=== PATIENT | female | born 1995 | race American Indian/Alaskan Native ===

== ENCOUNTER 2017-07-23 19:18 | Emergency (ER) | payer MEDICAID | END 2017-07-23 19:25 | disposition left against medical advice (07) | LOC: ED 19:18 | DX: R10.9 Unspecified abdominal pain (principal); Z53.21 Procedure and treatment not carried out due to patient leaving prior to being seen by health care provider ==

== ENCOUNTER 2017-11-25 17:55 | Emergency (ER) | payer SELFPAY | END 2017-11-25 17:56 | disposition left against medical advice (07) | LOC: ED 17:55 | DX: R10.9 Unspecified abdominal pain (principal); Z53.21 Procedure and treatment not carried out due to patient leaving prior to being seen by health care provider ==

== ENCOUNTER 2019-01-23 22:59 | Emergency (ER) | payer SELFPAY ==
[2019-01-24 00:28] VITALS: BP 156/76
[2019-01-24] MEDS ORDERED: NACL 0.9% 1000 ML 1,000 ML IV ONE (02:37)
[2019-01-24 03:10] LABS: HCG Qualitative,Urine Negative (Negative)
[2019-01-24 03:27] LABS: Bilirubin,Urine NEG (Negative); Blood,Urine SM (Negative); Color,Urine Straw (Yellow); Mucus,Urine FEW /HPF; Protein,Urine <15 mg/dL mg/dL (Negative); Urobilinogen,Urine < 2.0 mg/dL (<2.0)
== END 2019-01-24 07:26 | disposition left against medical advice (07) ==
LOC: ED 22:59
DX: R10.9 Unspecified abdominal pain (principal); Z53.21 Procedure and treatment not carried out due to patient leaving prior to being seen by health care provider
CPT/HCPCS: 81001; 81025

== ENCOUNTER 2020-04-03 06:52 | Inpatient (IN) | payer OTHER ==
[2020-04-03] MEDS ORDERED: AMPICILLIN/NS 2 GM/100 ML 2 GM/100 ML BAG IV ONE (07:56)
[2020-04-03] MEDS ORDERED: BUTORPHANOL 2 MG/1 ML INJ IV PRN ×2 (09:00)
[2020-04-03] MEDS ORDERED: MINERAL OIL 30 ML ORAL LIQD PO PRN (09:00)
[2020-04-03] MEDS ORDERED: LIDOCAINE (2%) 20 MG/1 ML VIAL 20 ML MDV INFILTRATI SCH (09:00)
[2020-04-03] MEDS ORDERED: ONDANSETRON 4 MG/2 ML INJ IV PRN ×2 (09:00→12:42)
[2020-04-03] MEDS ORDERED: PROMETHAZINE 25 MG TAB PO PRN ×2 (09:00→12:42)
[2020-04-03] MEDS ORDERED: OXYTOCIN 20 UNIT/1000ML DRIP 20 UNITS/1,000 ML BAG IV SCH (09:00)
[2020-04-03] MEDS ORDERED: ePHEDrine SULFATE 50 MG/1 ML INJ IV PRN (09:00)
[2020-04-03] MEDS ORDERED: fentaNYL 100 MCG/2 ML INJ IV PRN (09:00)
[2020-04-03] MEDS ORDERED: TERBUTALINE 1 MG/1 ML INJ SUB-Q PRN (09:00)
[2020-04-03] MEDS ORDERED: TERBUTALINE 1 MG/1 ML INJ IVP PRN (09:00)
[2020-04-03] MEDS ORDERED: NALOXONE 0.4 MG/1 ML INJ IV PRN (09:00)
[2020-04-03] MEDS ORDERED: OXYTOCIN DRIP 30 UNITS/500 ML BAG IV SCH ×2 (09:00)
--- NOTE | 2020-04-03 10:01 | History and Physical Report ---
History of Present Illness Date of examination: 04/03/20 Date of admission: 04/03/20 08:53 Chief complaint: Contractions History of present illness: Pt is a at 38.2 weeks EGA who presents with regular uterine contractions since 0300 today. She reports positive movement and denies LOF or vaginal bleeding. She has received care with [facility]. Her has been complicated by Chlamydia, cured. She is GBS positive. She has a history of LTCS x1 and x1. 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 Family/Genetic History: none Social history: no significant social history - Obstetrical History Expected Date of Delivery: 04/15/20 Actual Gestation: 38 Week(s) 2 Day(s) : 3 Para: 2 Number of Living Children: 2 Medications and Allergies Allergies Allergy/AdvReac Type Severity Reaction Status Date / Time No Known Allergies Allergy Verified 09/09/13 19:18 Home Medications Medication Instructions Recorded Confirmed Last Taken Type Pnv with Ca,No.72/Iron/FA 1 caplet AU AC 09/09/13 04/03/20 09/09/13 History [ Plus Tablet] Ferrous Sulfate [Feosol 325 MG tab] 325 mg PO QDAY #30 tablet 09/12/13 04/03/20 Unknown Rx Hydrocodone Bit/Acetaminophen 1 each PO Q4-6H PRN #30 tablet 09/12/13 04/03/20 Unknown Rx [Lortab 5-500 Tablet] Ibuprofen [Motrin 600 MG tab] 600 mg PO Q6H PRN #30 tablet 09/12/13 04/03/20 Unknown Rx Nitrofurantoin Callahan/M-Cryst 100 mg PO Q12HR #10 capsule 09/12/13 04/03/20 Unknown Rx [Macrobid] Vit-Fe Fumar-FA [ 1 each PO QDAY #30 tablet 09/12/13 04/03/20 04/02/20 Rx Vitamin] Ibuprofen [Motrin 600 MG tab] 600 mg PO Q6H PRN #30 tablet 04/14/16 04/03/20 Unknown Rx Active Meds: Active Medications Butorphanol Tartrate (Stadol) 1 mg IV Q2H PRN PRN Reason: Pain, Moderate(4-6) LABOR PAIN Butorphanol Tartrate (Stadol) 2 mg IV Q2H PRN PRN Reason: Pain , Severe (7-10) Ephedrine Sulfate (Ephedrine Sulfate) 10 mg IV Q2M PRN PRN Reason: Hypotension Fentanyl (Sublimaze) 100 mcg IV Q2H PRN PRN Reason: Pain,Severe (7-10) LABOR PAIN Oxytocin/Sodium Chloride (Pitocin/Ns 20 Unit/1000ml Drip) 20 units in 1,000 mls @ 125 mls/hr IV DIRECT ROLANDO Oxytocin/Sodium Chloride (Pitocin/Ns 30 Unit/500ml) 30 units in 500 mls @ 1 mls/hr IV TITR ROLANDO; Protocol Oxytocin/Sodium Chloride (Pitocin/Ns 30 Unit/500ml) 30 units in 500 mls @ 2 mls/hr IV TITR ROLANDO; Protocol Lactated Ringer's (Lactated Ringers) 1,000 mls @ 125 mls/hr IV DIRECT ROLANDO Ampicillin Sodium (Ampicillin/Ns 1 Gm/50 Ml) 1 gm in 50 mls @ 100 mls/hr IV Q4H ROLANDO; Protocol Lidocaine (Xylocaine 2%) 20 ml INFILTRATI ONCE ROLANDO Stop: 04/04/20 08:59 Mineral Oil (Mineral Oil) 30 ml PO QHS PRN PRN Reason: Constipation Naloxone HCl (Naloxone) 0.1 mg IV Q2MIN PRN PRN Reason: Res Rate </= 8 or 02 SAT < 92% Ondansetron HCl (Zofran) 4 mg IV Q8H PRN PRN Reason: Nausea And Vomiting Promethazine HCl (Phenergan) 25 mg PO Q6H PRN PRN Reason: Nausea And Vomiting Terbutaline Sulfate (Brethine) 0.25 mg SUB-Q ONCE PRN PRN Reason: Hyperstimulation/Hypertonicity Terbutaline Sulfate (Brethine) 0.25 mg IVP ONCE PRN PRN Reason: Hyperstimulation/Hypertonicity Review of Systems All systems: negative Genitourinary: contractions, no vaginal bleeding, no leakage of fluid - Vital Signs Vital signs: Vital Signs Temp Resp 97.9 F 18 04/03/20 07:18 04/03/20 07:18 Temp Pulse Resp BP Pulse Ox 97.9 F 89 18 117/74 98 04/03/20 07:18 04/03/20 08:56 04/03/20 07:18 04/03/20 08:47 04/03/20 08:56 - Physical Exam Genitourinary (Female): Positive: normal external genitalia Uterus: Positive: enlarged (gravid) Extremities: Positive: normal - Obstetrical FHR: category 1 Uterine Contraction Monitor Mode: External Cervical Dilatation: 6 Cervical Effacement Percentage: 90 station: -2 Uterine Contraction Frequency (min): 3 Uterine Contraction Pattern: Regular Results Result Diagrams: 04/03/20 10:17 All other labs normal. Assessment and Plan A: 25 yo at 38.4 weeks EGA Active labor Phobia of needles GBS positive P: Admit for labor Consult anesthesia for sedation prior to IV placement Consider delivery in OR if unable to place IV Anticipate
[2020-04-03] MEDS: LACTATED RINGERS 1,000 ML IV SCH ×2 (10:17→11:13)
[2020-04-03 10:48] LABS: Hematocrit 39.3 % (30.3-42.9); Hemoglobin 13.1 gm/dl (10.1-14.3); Mean Corpuscular HGB Conc 33 % (30-34); Mean Corpuscular Volume 96 fl (79-97); Platelet Count 196 K/mm3 (140-440); Red Blood Count 4.09 M/mm3 (3.65-5.03); Red Cell Distribution Width 14.1 % (13.2-15.2)
[2020-04-03] MEDS ORDERED: DEXMEDETOMIDINE 200 MCG/2 ML VIAL IV ONE (11:29)
[2020-04-03] MEDS ORDERED: METHYLERGONOVINE MALEATE 0.2 MG/ML VIAL IM ONE (12:18)
[2020-04-03] MEDS ORDERED: AMPICILLIN/NS 1 GM/50 ML 1 GM/50 ML BAG IV SCH (12:30)
--- NOTE | 2020-04-03 12:33 | Procedure Note ---
OB Delivery Note - Delivery Date of Delivery: 04/03/20 Surgeon: PAN PRADO ([facility]) Estimated blood loss: other (400cc) - Vaginal Delivery presentation: vertex Delivery position: OA Intrapartum events: none, PROM->1hr before delivery Delivery induction: none Delivery monitor: external FHT, external uterine Route of delivery: Delivery placenta: spontaneous Delivery cord: 3 umbilical vessels Episiotomy: none Delivery laceration: none Anesthesia: none Delivery comments: Spontaneous maternal effort progressed spontaneous of vigorous . Head delivered OA, shoulders followed with gentle traction. Apgars 9/9. Placenta delivered with gentle traction spontaneously and intact. Succenturiate lobe noted. Brisk bleeding resolved with expression clots and IV Pitocin. No lacerations noted. Lap and instrument counts correct. - Infant A at 1 minute: 9 at 5 minutes: 9 Gender: Male
[2020-04-03] MEDS ORDERED: MAGNESIUM HYDROXIDE (MOM) ORAL LIQD UDC PO PRN (12:42)
[2020-04-03] MEDS ORDERED: PROMETHAZINE 25 MG RECT SUPP PR PRN (12:42)
[2020-04-03] MEDS ORDERED: diphenhydrAMINE 25 MG CAP PO PRN (12:42)
[2020-04-03] MEDS ORDERED: ACETAMINOPHEN 325 MG TAB PO PRN (12:42)
[2020-04-03] MEDS ORDERED: WITCH HAZEL/ GLYCERIN PAD TP PRN (12:42)
[2020-04-03] MEDS ORDERED: LANOLIN/ZINC/DIMETHICONE (LANSINOH) 7 GM TP PRN (12:42)
[2020-04-03] MEDS: IBUPROFEN 600 MG TAB PO SCH (14:06)
[2020-04-04] MEDS: IBUPROFEN 600 MG TAB PO SCH ×4 (00:14→23:47)
--- NOTE | 2020-04-04 08:23 | Progress Note ---
Assessment and Plan A: PPD1 s/p Vital signs stable Phobia of needles, appropriate intrapartum H&H P: Defer pp H&H Routine pp care Anticipate d/c to home on PPD2 Subjective - Subjective Date of service: 04/04/20 Principal diagnosis: s/p Interval history: PPD1 s/p Patient reports: appetite normal, voiding normally, pain well controlled, ambulating normally [place]: doing well, bottle feeding (pt considering breast feeding) Objective - Vital Signs Latest vital signs: Vital Signs Temp Pulse Resp BP BP Pulse Ox 04/04/20 06:27 16 04/04/20 00:19 97.8 F 83 20 91/50 100 04/04/20 00:14 18 04/03/20 20:39 99.1 F 90 18 85/46 99 04/03/20 17:21 20 04/03/20 16:31 98.8 F 97 H 18 116/73 99 04/03/20 14:06 20 04/03/20 13:51 98.9 F 84 20 101/71 100 04/03/20 13:00 99.0 F 04/03/20 12:58 93 H 110/83 04/03/20 12:56 105 H 98 04/03/20 12:31 107 H 98 04/03/20 12:26 100 H 100 04/03/20 12:21 91 H 109/56 98 04/03/20 12:18 102 H 101/59 04/03/20 12:17 106 H 97/53 04/03/20 12:16 98 H 99 04/03/20 12:12 89 04/03/20 12:11 86 99 04/03/20 12:06 127 H 100 04/03/20 12:05 95 H 100/62 04/03/20 12:00 99.0 F 108 H 22 100/62 100 04/03/20 11:06 90 114/73 04/03/20 11:04 173 H 178/140 04/03/20 10:49 89 110/65 04/03/20 10:44 97 H 138/69 04/03/20 10:37 99.2 F 88 20 130/87 100 04/03/20 10:28 88 130/87 04/03/20 08:56 89 98 04/03/20 08:51 87 98 04/03/20 08:47 86 117/74 04/03/20 08:46 87 98 Intake and Output 04/03/20 04/04/20 04/04/20 23:59 07:59 15:59 Intake Total 600 480 Output Total 900 600 Balance -300 -120 Intake: Oral 360 480 Intake, Free Water 240 Output: Urine 900 600 Void 900 600 Other: Total, Intake Amount 360 240 Total, Output Amount 300 600 # Voids Void 1 1 - Exam Lungs: Present: Normal air movement Abdomen: Present: soft. Absent: distention Uterus: Present: firm, fundal height below umbilicus. Absent: bogginess Extremities: Present: normal - Labs Labs: Abnormal lab results 04/03/20 Range/Units 10:17 WBC 16.8 H (4.5-11.0) K/mm3
--- NOTE | 2020-04-04 12:04 | Discharge Summary ---
Providers - Providers Date of Admission: 04/03/20 08:53 Date of discharge: 04/05/20 Attending physician: FELECIA PARIS Primary care physician: FELECIA PARIS Hospitalization Reason for admission: active labor, IUP at term Delivery: Episiotomy: none Laceration: none Other procedures: none Discharge diagnosis: IUP at term delivered Hospital course: Pt presented in active labor and progressed to spontaneously of viable infant. She met discharge criteria on PPD1. Condition at discharge: Good Disposition: DC-01 TO HOME OR SELFCARE Plan - Discharge Medications Prescriptions: Ibuprofen [Motrin] 600 mg PO Q6H PRN #60 tablet PRN Reason: Pain - Provider Discharge Summary Activity: routine, no sex for 6 weeks, no heavy lifting 4 weeks, no strenuous exercise Diet: routine Instructions: routine Additional instructions: [] Smoking cessation referral if applicable(refer to patient education folder for contact #) [] Refer to [facility] Booklet Call your doctor immediately for: * Fever > 100.5 * Heavy vaginal bleeding ( >1 pad per hour) * Severe persistent headache * Shortness of breath * Reddened, hot, painful area to leg or breast * Drainage or odor from incision. * Keep incision clean and dry at all times and follow doctor's instructions regarding bathing/showering - Follow up plan Follow up: PAN PRADO CNM [Advanced Practice Nurse] - 14 Days (Please call [facility] clam[facility] to schedule appointment.)
[2020-04-05] MEDS: IBUPROFEN 600 MG TAB PO SCH ×2 (06:04→12:15)
[2020-04-05 18:18] VITALS: BP 96/57
== END 2020-04-05 16:50 | disposition home or self-care (01) | DRG 775 ==
LOC: TRG 06:52 → APU 07:00 → LD 08:53 → TRG 09:13 → OB 14:01
PROVIDERS: ADMIT Obstetrics & Gynecology; ATTEND Obstetrics & Gynecology
PROC: 10E0XZZ Delivery of Products of Conception, External Approach (ICD-10-PCS; principal; 2020-04-03)
DX: O42.02 Full-term premature rupture of membranes, onset of labor within 24 hours of rupture (principal); O34.211 Maternal care for low transverse scar from previous cesarean delivery; O99.824 Streptococcus B carrier state complicating childbirth; O99.52 Diseases of the respiratory system complicating childbirth; J45.909 Unspecified asthma, uncomplicated; Z3A.38 38 weeks gestation of pregnancy; Z37.0 Single live birth; Z79.899 Other long term (current) drug therapy
CPT/HCPCS: 36415; 85027; 86592; 86706; 86762; 86850; 86900; 86901; 87806; 88307; 96374; G0378; J0290; J2210; J2405; J2590; J3010; J3490; J7120; Q0169